=== PATIENT | male | born 1980 | race Two or more races ===

== ENCOUNTER → 2024-09-07 | Outpatient (CLI) | payer MEDICAID, SELFPAY ==
--- NOTE | 2024-09-07 14:40 | XR_ITS ---
Examination: Knee bilateral, 6 views Technique: Knee AP, lateral, oblique each knee total 6 views Date and time of exam: September 07, 2024 1446 hours INDICATIONS: Bilateral knee pain beginning 6 months ago. FINDINGS: Bilateral mild to moderate narrowing medial joint spaces No fracture or dislocation involving either knee No ossified joint bodies No cortical bone destruction IMPRESSION: Bilateral mild to moderate narrowing medial joint spaces
== END | disposition home or self-care (01) ==
LOC: COPL 14:29 → CDIM 14:31
PROVIDERS: PCP Nurse Practitioner Family; Referring Provider Nurse Practitioner Family; Visit Provider Nurse Practitioner Family
DX: M25.862 Other specified joint disorders, left knee (principal); M25.861 Other specified joint disorders, right knee
CPT/HCPCS: 73562

== ENCOUNTER → 2025-01-17 | Outpatient (CLI) | payer MEDICAID, SELFPAY ==
--- NOTE | 2025-01-17 10:47 | XR_ITS ---
EXAMINATION: Testicular sonography complete TECHNIQUE: Grayscale sonographic images testes, assessment arterial inflow and venous outflow Doppler spectral analysis color flow analysis Date and time: January 17, 2025, 1052 hours INDICATIONS: Left testicular pain beginning 1 week ago FINDINGS: Right testis 5.3 cm epididymis 13 mm Arterial flow the testicle. No testicular mass Mild hydrocele Minimal microlithiasis Left testis 4.7 cm epididymis 15 mm Arterial flow the testicle. No testicular mass Mild hydrocele IMPRESSION: No testicular torsion or testicular mass Minimal right testicular microlithiasis
== END | disposition home or self-care (01) ==
PROVIDERS: PCP Nurse Practitioner Family; Referring Provider Nurse Practitioner Family; Visit Provider Nurse Practitioner Family
DX: N50.89 Other specified disorders of the male genital organs (principal)
CPT/HCPCS: 76870